=== PATIENT | male | born 1970 | race Caucasian/White ===

== ENCOUNTER → 2016-04-21 | Day surgery (SDC) | payer BC ==
[~2016-04-21] MED LIST: ACETAMINOPHEN/HYDROcodone 325 MG/7.5 MG TAB ONE; BUPIVACAINE/EPINEPHRINE 0.25% PF 30 ML VIAL ONE; DICL25 PO; KETOROLAC TROMETHAMINE 30 MG/ML (IVP) VIAL IV PUSH ONE; LACTATED RINGER'S 1000 ML INJ 1,000 ML ONE; MEPERIDINE HCL 50 MG/ML VIAL ONE; MIDAZOLAM HCL 2 MG/2 ML VIAL ONE; ONDANSETRON HCL 4 MG/2 ML VIAL IV PUSH ONE; ORPH100T PO; PRED1 PO; PROPOFOL 100 MG/10 ML INJ IV ONE; TYLE3 PO; VANCOMYCIN 500 MG VIAL ONE
--- NOTE | 2016-04-21 18:27 | TN ---
cc: STEVE HERRERA MD DATE OF SURGERY: 04/21/2016. PREOPERATIVE DIAGNOSIS: Left knee probable torn medial and lateral meniscus, multiple loose bodies, synovitis, possible psoriatic arthritis versus rheumatoid arthritis. POSTOPERATIVE DIAGNOSIS: Left knee probable torn medial and lateral meniscus, multiple loose bodies, synovitis, possible psoriatic arthritis versus rheumatoid arthritis. OPERATIVE PROCEDURE PERFORMED: Left knee arthroscopy with partial medial meniscectomy, extensive synovial debridement, removal loose bodies. SURGEON: Steve Herrera MD. DESCRIPTION OF THE PROCEDURE IN DETAIL: Informed consent was obtained. The patient was taken to the operating room and placed in the supine position on the operating table. He was administered a general anesthesia by Dr. Sheffield of the anesthesia department. At that time, the patient had a tourniquet applied to the right thigh and the right leg was prepped with Betadine soap followed by Betadine paint and draping commenced with sterile down sheets, sterile U-drape, sterile stockinette was applied to the foot and calf and this was wrapped with a Coban and an extremity drape was applied. The table was elevated and the patient's leg was elevated. A time-out was held and confirmed. The patient had been given Vancomycin 500 milligrams prior to the initiation of the operative procedure. At that time the tourniquet inflated. The leg was allowed to flex over the side of the operating table. An 18 gauge spinal needle was placed in the region of the lateral infrapatellar portal. This region was infiltrated with 4 cc of 0.25% Marcaine with epinephrine. Infiltration was also performed in the medial infrapatellar portal and the transpatellar tendon portal region. A small incision was made with an 11 blade in the region of the transpatellar tendon portal. An inflow cannula was placed. A second incision was placed in the region of the lateral infrapatellar portal and an arthroscopic cannula was placed. Diagnostic arthroscopy commenced. The medial compartment was examined. There was some synovium which required debridement prior to complete visualization of the medial compartment. The patient had tearing involving zone I and zone II of the medial meniscus in the posterior and posteromedial portions. The anterior portion of the meniscus appeared intact. Utilizing a shaver, a partial synovectomy was performed here and the meniscus was debrided. At that time, the leg was placed in a figure-four position and the lateral meniscus was examined. I did not see any tearing of the lateral meniscus. There were no extensive degenerative changes noted. The lateral femoral condyle and tibial plateau and likewise the medial compartment had some mild degenerative changes of the joint surfaces. It should be noted on the lateral side there was extensive synovitis with some of the synovium underneath the lateral meniscus which may have altered the MRI appearance of the lateral meniscus. There was no lateral meniscus tear identified. Next the scope was placed in the intercondylar notch and the anterior and posterior cruciate ligaments were evaluated and these appeared normal. The scope was placed in the suprapatellar pouch. 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 Synovial biopsies were obtained and the shaver was utilized to complete a synovectomy as could be accomplished. Palpation and examination along the medial gutter demonstrated there was a large tethered loose body between the patella and the patients the medial trochlea which was palpable on clinical exam. A small incision was made over this area and this was removed. The C-arm was brought in to attempt to localize a second loose body in the posteromedial corner. This was not found to be inside the joint and was felt to be possibly in a posterior cyst. At that time, the knee was irrigated and suctioned and all cannulas were removed. Each portal was closed with a single 4-0 nylon interrupted stitch. The small incision for removal the loose body was closed with 0 Vicryl, 3-0 plain and 4-0 nylon stitches utilizing Allgower type stitch. Steri-Strips were applied followed by 4x4s, Sof-Rol and Sky wrap. The patient tolerated the procedure well and was then taken to the recovery room in stable condition. At the completion of the procedure, the sponge count, instrument count and needle count were correct. The estimated blood was 10 cc. MD ISAIAH Mckeon/CHEYANNE /5:35 PM /6:19 PM
== END | disposition home or self-care (01) ==
LOC: ESDC 12:45
PROVIDERS: ATTEND Orthopaedic Surgery
DX: S83.242A Other tear of medial meniscus, current injury, left knee, initial encounter (principal); M65.9 Synovitis and tenosynovitis, unspecified
CPT/HCPCS: 01400; 29881; 88300; 88305; 88311; J1885; J2175; J2250; J2405; J3010; J3370; J7120; 88304

== ENCOUNTER 2016-11-27 13:18 | Emergency (ER) | payer BC ==
[~2016-11-27] VITALS: Ht 175.3 cm; Wt 110.0 kg
[~2016-11-27 13:18] MED LIST changes: -ACETAMINOPHEN/HYDROcodone 325 MG/7.5 MG TAB ONE; -BUPIVACAINE/EPINEPHRINE 0.25% PF 30 ML VIAL ONE; -KETOROLAC TROMETHAMINE 30 MG/ML (IVP) VIAL IV PUSH ONE; -LACTATED RINGER'S 1000 ML INJ 1,000 ML ONE; -MEPERIDINE HCL 50 MG/ML VIAL ONE; -MIDAZOLAM HCL 2 MG/2 ML VIAL ONE; -ONDANSETRON HCL 4 MG/2 ML VIAL IV PUSH ONE; -PROPOFOL 100 MG/10 ML INJ IV ONE; -VANCOMYCIN 500 MG VIAL ONE
[2016-11-27 13:21] VITALS: BP 166/90; PULSE 112; RESP 20; TEMP 97.8; O2SAT 97
[2016-11-27] MEDS ORDERED: METH8TAB3 PO (13:54)
[2016-11-27] MEDS ORDERED: HYDR-3533 PO (13:54)
[2016-11-27] MEDS ORDERED: NYSTAT/DIPHENHY/LIDO MOUTHWASH (Adult) 120ML SWISH-SPIT STA (14:02)
[2016-11-27] MEDS ORDERED: DEXAMETHASONE SOD PHOS 4 MG/ML VIAL IM ONE (14:15)
--- NOTE | 2016-11-27 15:22 | PD ---
HPI Chief Complaint: ENT Complaint Time Seen by Provider: 13:42 Travel History International Travel<30 days: No Contact w/Intl Traveler<30days: No Traveled to known affect area: No History of Present Illness HPI Is a 46-year-old man presents emergent from with a foreign body sensation in the back of his throat. He was in emergency Department earlier today they couldn't see the back of his surgery was given a prescription for azithromycin. He states he feels like something is hanging on his tongue, is worse with laying certain positions, neck causing him to gag a little bit. He is to hold a sort of funny angle and is trouble swallowing. No fevers no chills. He is able to eat and drink. No other complaints. History Past Medical History Narrative Medical Diabetes Tetanus Vaccination: Unknown Influenza Vaccination: No Social History Alcohol Use: No Tobacco Use: No Allergies-Medications (Allergen,Severity, Reaction): Coded Allergies: penicillin G (Unverified Allergy, Severe, CHILDHOOD, DOESN'T REMEMBER, ) Reported Meds & Prescriptions Reported Meds & Active Scripts Active Reported Lortab (Hydrocodone-Acetaminophen) 5-325 Mg Tab 1 Tab PO BID PRN Methylprednisolone 8 Mg Tab 4 Mg PO BID Review of Systems Except as stated in HPI: all other systems reviewed are Neg Physical Exam Narrative GENERAL: Well-appearing 46-year-old man, no acute distress. SKIN: Focused skin assessment warm/dry. HEAD: Atraumatic. Normocephalic. EYES: Pupils equal and round. No scleral icterus. No injection or drainage. ENT: No nasal bleeding or discharge. Mucous membranes pink and moist. NECK: Trachea midline. No JVD. CARDIOVASCULAR: Regular rate and rhythm. No murmur appreciated. RESPIRATORY: No accessory muscle use. Clear to auscultation. Breath sounds equal bilaterally. GASTROINTESTINAL: Abdomen soft, non-tender, nondistended. Hepatic and splenic margins not palpable. MUSCULOSKELETAL: No obvious deformities. No clubbing. No cyanosis. No edema. NEUROLOGICAL: Awake and alert. No obvious cranial nerve deficits. Motor grossly within normal limits. Normal speech. PSYCHIATRIC: Appropriate mood and affect; insight and judgment normal. Data Data Last Documented VS Vital Signs Date Time Temp Pulse Resp B/P (MAP) Pulse Ox O2 Delivery O2 Flow Rate FiO2 11/27/16 13:21 97.8 112 20 166/90 (115) 97 Room Air Orders Orders Dexamethasone Inj (Decadron Inj) (11/27/16 14:15) Pqch-[id number]-Dhyo Liq (Magic Mouthwash Adul (11/27/16 14:02) [facility] Medical Decision Making Medical Screen Exam Complete: Yes Emergency Medical Condition: Yes Differential Diagnosis Uvular hydrops, tonsillitis, pharyngitis, epiglottitis, other Narrative Course Is a very well-appearing 46-year-old man who presents to the emergency department with symptoms that sound like uvular hydrops. Unfortunately given the patient's anatomy extremely difficult to visualize his posterior oropharynx. I can see some of the soft palate which is have one or 2.the petechiae that could suggest an enanthem. Description of his symptoms sounds like a uvular hydrops. I can't see this. He is on steroids chronically. I don 't see any evidence of a toxic infection in the neck are epiglottitis. Is no fever. Symptoms started just this morning. Acute onset also suggest against something more sinister like tumor. He has no respiratory difficulties and is able to swallow. At this point I recommended a shot of Decadron to try to shrink what may be some uvular edema or swelling of the posterior oropharynx. I recommended he take azithromycin as prescribed, earlier. We also did a trial of some Magic mouthwash swish and spit which did help him. We'll send him home with this with instructions for every 4 hours swish and spit as needed. He agrees to return for any new or worsening symptoms. Diagnosis Primary Impression: Throat irritation Additional Instructions: Continue current medications. Take azithromycin as previously prescribed. Use Magic mouthwash as directed. Return to the emergency department for any new or worsening symptoms, especially any trouble swallowing, or any trouble breathing. Med/Other Pt SpecificInfo: No Change to Meds Disposition: 01 DISCHARGE HOME Condition: Stable Kulwant Forman MD Nov 27, 2016 15:22
== END 2016-11-27 15:39 | disposition home or self-care (01) ==
LOC: NEPD 13:18
DX: J39.2 Other diseases of pharynx (principal)
CPT/HCPCS: 96372; 99284; J1100